=== PATIENT | male | born 1975 | race Caucasian/White ===

== ENCOUNTER 2017-04-25 17:34 | Inpatient (IN) | payer BC ==
--- NOTE | ~2017-04-25 | DS ---
Discharge Summary [facility] [address] [facility] [place]. [address] NAME: FRANCESCA WOOD IV : 73 STATUS : DIS IN PAT#: [id number] AGE: 42 ADM/REG DATE : 04/25/17 MR#: [id number] REPORT SERV DATE: 04/29/17 DICTATED BY: ASIA GR DATE: 04/28/17 REPORT STATUS : Draft TRANSCRIBED BY: MODL DATE: 04/28/17 ADMISSION DATE: 04/25/2017 DISCHARGE DATE: 04/27/2017 CONDITION ON DISCHARGE: Stable. DISPOSITION: Discharged to home. ADVICE ON DISCHARGE: To follow up with Dr. Barboza as an outpatient within the next few weeks as scheduled. DIAGNOSES ON DISCHARGE: 1. Abdominal pain - resolved. 2. Nausea, vomiting - resolved. 3. Diarrhea has resolved; however, the patient does have chronic intermittent diarrhea for which workup will be done and followup will be done at Dr. Barboza's office within the next few weeks. 4. Partial small bowel obstruction and thickening of the small bowel that was seen on the CT scan of the abdomen - partial small bowel obstruction has resolved, but thickening has to be investigated further. BRIEF HOSPITAL COURSE: The patient is a 42-year-old male patient who was admitted with signs and symptoms as outlined in history and physical exam. Essentially, he was admitted with severe abdominal pain, nausea, and intermittent diarrhea. The patient was admitted for further workup and observation initially because his CT scan of the abdomen and pelvis showed partial thickening of the small bowel and also partial small bowel obstruction. Other than that, the liver, the spleen, the kidneys, and the pancreas were all found to be normal and there were no masses that were seen in the intestines itself on CT scan. The patient essentially was admitted for pain control and also for symptomatic treatment of pain and nausea. Initially for the first 23 hours, the patient seemed to be doing well for the first 12 hours or so, but then when we tried to advance his diet from liquids to solids, he started having violent bouts of nausea and vomiting and the abdominal pain came back. Up until yesterday morning around 5 a.m. or so, the patient continued to require IV Dilaudid almost every two hours to keep the abdominal spasmodic pain down and also nausea medicine to keep the nausea down. It was only after late in the morning yesterday that symptoms subsided and he finally requested food to eat. The patient then was started on liquids and then the diet was advanced to solids. All the while along, the patient was seen by Dr. Barboza and multiple tests were ordered. All the test results will be dictated in the paragraphs below. Anyhow on 04/27/2017 later in the morning, the patient started feeling better, and in the late afternoon and evening, he was able to tolerate a regular solid food. I was called after 6 o'clock at night to discharge the patient as the patient was insistent on going home. His was there and she was also saying that he was feeling much better, he was a new person and they wanted to go home. Hence, I discharged the patient home after GI was informed also. However, there is some amount of apprehension involved here as the patient's observation status had to be changed to full inpatient status as he continued to have abdominal pain, nausea, vomiting all the way up until 04/27/2017 morning. Also the Discharge Summary [address] [place]. [address] NAME: FRANCESCA WOOD IV : 73 STATUS : DIS IN PAT#: [id number] AGE: 42 ADM/REG DATE : 04/25/17 MR#: [id number] REPORT SERV DATE: 04/29/17 DICTATED BY: ASIA GR DATE: 04/28/17 REPORT STATUS : Draft TRANSCRIBED BY: NEELAM DATE: 04/28/17 concern was that his diet had not been advanced yet. Anyhow, hope he will do well and will follow up with Dr. Barboza as an outpatient. The following labs have been obtained on this patient so far: His CBC is normal. His BMP is normal. His liver function tests are normal. His lipase is normal. The patient had a CT scan of the abdomen and pelvis that showed partial small bowel obstruction and thickening of the small bowel loops on the left side of the abdomen which was read as nonspecific, but no masses were found. Pancreas was normal. The patient had a urinalysis that was also normal that did not show any evidence of infection. C-reactive protein was also normal. Other labs that were done at this time include the following stool studies: Stool was sent off for C. diff and this came back negative. Stool for parasites came back negative for Giardia and negative for Cryptosporidium. No fecal leukocytes were seen. Dr. Barboza, who consulted on the patient, did order several tests to check for celiac disease at this time. So far, we have the following results back: His anti-gliadin IgA is normal, anti-gliadin IgG is normal, reticulin antibody or tissue transglutaminase is less than 0.5 which is also normal; however, anti-endomysial antibody is pending at this time. Also stool culture has come back with no Shiga toxin that was identified at this time. Hence, this patient's diagnosis is suspicious for either irritable bowel syndrome or inflammatory bowel disease. However, he will follow up with Dr. Barboza as an outpatient. DISCHARGE MEDICATIONS: His home medications that he was discharged home on include the following: Zofran 8 mg p.o. t.i.d. p.r.n. for nausea that he already has, Zyrtec 10 mg once a day that he takes for allergies on a p.r.n. basis, ProAir HFA that he takes p.r.n. for mild intermittent asthma, QVAR 40 mcg two sprays twice a day as needed only for flare-up of asthma, and hydrocortisone 2.5% cream that he applies topically in the rectal area for hemorrhoids. Other than that, no other medications have been prescribed during this admission. This is my discharge summary and I have spent about 35 minutes overall in dictating this summary and I have had a zbyh-cy-crad encounter with this patient also on 04/27/2017. DICTATED BY: Isrrael Dodson/NEELAM Asia Gr M.D. / [id number] CC: Discharge Summary [address] [address] NAME: FRANCESCA WOOD IV : 73 STATUS : DIS IN PAT#: [id number] AGE: 42 ADM/REG DATE : 04/25/17 MR#: [id number] REPORT SERV DATE: 06/11/17 DICTATED BY: ASIA GR DATE: 04/28/17 REPORT STATUS : Draft TRANSCRIBED BY: MODL DATE: 04/28/17 Isrrael Dodson M.D.
--- NOTE | ~2017-04-25 | HP ---
History And Physical [place] [address] [facility] [place]. [address] NAME: FRANCESCA WOOD IV : 73 STATUS : ADM Saundra PAT#: [id number] AGE: 42 ADM/REG DATE : 04/25/17 MR#: [id number] REPORT SERV DATE: 04/25/17 DICTATED BY: ASIA GR DATE: 04/25/17 REPORT STATUS : Draft TRANSCRIBED BY: MODL DATE: 04/25/17 DATE OF ADMISSION: 04/25/2017 HISTORY OF PRESENT ILLNESS: Mr. Wood is a 42-year-old male patient, who came in today because of abdominal pain. The patient states that his abdominal pain started last night after he had had about four beers or so to drink on an empty stomach. He said that he went to bed and was in his usual state of health when the abdominal pain hit him all of a sudden. He states that the pain was in the central part of the abdomen and then gradually spread to other areas of the abdomen too. The abdominal pain was extremely severe and spasmodic type. The patient states that he has never experienced any pain like this before ever. He said that this pain almost doubled him over. The pain lasted for almost four hours or so at nighttime before he was able to finally get some sleep. He woke up again this morning and had the same pain one more time. Normally, when he has a small episodes of abdominal pain like this, he attributes it to gas and usually it gets better once he has a bowel movement. But at this time, the patient states that he had a bowel movement this morning, but even then the pain did not let up. When the pain continued, he got worried and decided to come into the ER. His , who is a food service cashier, also urged him to go on to the ER and hence he is here. The patient states that he had a loose bowel movement this morning. He denies any blood in stool. He denies any mucus in stool. REVIEW OF SYSTEMS: Negative for any vomiting, even though there is some nausea. The patient denies any headaches, blurry vision, trouble swallowing, chest pain, fever, shortness of breath, or cough. Denies any vomiting. Denies any dysuria or hematuria. Denies any joint pains. The patient does say however that he does have intermittent episodes of mild spasmodic-type abdominal pain, that usually gets better once he has a bowel movement. The patient states that he has two to three bowel movements a day off and on about one or two times a week. This usually happens when he has more than three beers or so to drink, and he classically states that this happens when he drinks along with a bag of potato chips. The patient states that he is definitely not an alcoholic at this time. PAST MEDICAL HISTORY: Significant for mild intermittent asthma. SOCIAL HISTORY: The patient does not smoke. He drinks as above. He drinks about three to four beers, sometimes more, two or three times a week, and sometimes does this on an empty stomach. He denies any illicit drug use. He is to a food service cashier and has two children. FAMILY HISTORY: Positive for colon cancer, but other than that, no other family history of inflammatory bowel disease or Crohn disease. MEDICATIONS AND ALLERGIES: His medications and allergies include the following: The patient is allergic to shellfish, but no other known allergies. His medications at home include Zyrtec 10 mg once a day p.r.n., ProAir HFA two puffs q.4 History And Physical [address] [address] NAME: FRANCESCA WOOD IV : 73 STATUS : ADM Saundra PAT#: [id number] AGE: 42 ADM/REG DATE : 04/25/17 MR#: [id number] REPORT SERV DATE: 04/25/17 DICTATED BY: ASIA GR DATE: 04/25/17 REPORT STATUS : Draft TRANSCRIBED BY: NEELAM DATE: 04/25/17 hours p.r.n. for asthma flare up, QVAR two inhalations twice daily, and hydrocortisone cream 2.5% topically in the anorectal area as needed. PHYSICAL EXAMINATION: GENERAL: On examination, the patient is alert, oriented, and is able to give his history himself. Right now, the patient states that his pain is down to only [id number] abdominal discomfort, especially after he has received Demerol in the ER. The patient states he is not nauseated either. Skin and mucous membranes appear well hydrated. VITAL SIGNS: His vital signs show that his blood pressure is 122/76. The patient is afebrile. Pulse is 60 per minute, respirations 15 per minute, and O2 sats 100% on room air. HEENT: Unremarkable. There is no facial asymmetry. NECK: There is no thyromegaly, lymphadenopathy, or any other masses. CARDIOVASCULAR SYSTEM: S1 and S2 appreciated. Sinus rhythm. No murmurs, rubs, or gallops noted. RESPIRATORY SYSTEM: Clear lungs. No rales or rhonchi noted at this time. Good lung expansion noted. ABDOMEN: Soft. There is some tenderness on the left upper quadrant of the belly, but there is no guarding or rigidity. There is no hepatosplenomegaly. There are no other masses that I could appreciate. Bowel sounds are sluggish, but appreciated somewhat. EXTREMITIES: There is no pedal edema. Pedal pulses are well felt. NEUROLOGIC: Normal. MUSCULOSKELETAL: Normal. PSYCHIATRIC: Normal affect. LABORATORY DATA: Labs that I have on this patient include a CBC that shows a WBC count of 7.9. Hemoglobin and hematocrit normal. Platelets normal. Urinalysis essentially shows no evidence of any acute infection. Comprehensive metabolic profile shows normal electrolytes, normal BUN and creatinine, normal lipase, normal LFTs, normal C-reactive protein, and his sedimentation rate is pending at this time. CT scan of the abdomen and pelvis does show partial small bowel obstruction with mild dilatation of small bowel in the left upper quadrant. There is also some small bowel thickening in the left side of the abdomen, which is nonspecific. There is also right and transverse colonic fecal stasis. ASSESSMENT: My assessment on this patient is: 1. Acute abdominal pain and partial small bowel obstruction, nonspecific etiology at this time. 2. The patient could have had an attack of pancreatitis, especially as he states that he drank on an empty stomach yesterday. Even though lipase is normal and CT scan of the abdomen shows normal pancreas, we will repeat a lipase in a.m. 3. Other differential in this patient includes acute gastritis/acute duodenitis/duodenal ulcer. PLAN: So the plan is to admit the patient for 23-hour observation, give him IV fluids, History And Physical [address] [place]. [address] NAME: FRANCESCA WOOD LADI : 71 STATUS : ADM Saundra PAT#: [id number] AGE: 42 ADM/REG DATE : 04/25/17 MR#: [id number] REPORT SERV DATE: 04/25/17 DICTATED BY: ASIA GR DATE: 04/25/17 REPORT STATUS : Draft TRANSCRIBED BY: MODNaheed DATE: 04/25/17 symptomatic relief with IV Dilaudid p.r.n., consult GI at this time. The patient, at some point, may need both an upper endoscopy and a lower endoscopy maybe during this admission, maybe as soon as an outpatient, but we will leave this up to GI specialist to decide. Within 23 hours, I hope his partial small bowel obstruction will clear up. At this time, since he is absolutely not nauseated at all, we will keep him on clear liquids. May advance diet to full liquids tomorrow as tolerated. We will watch the patient for 23-hour observation. RITAA/NEELAM Asia Gr M.D. / [id number] CC: Gary Davis M.D.
--- NOTE | ~2017-04-25 | CN ---
Consultation Report [facility] [address] [place]. [address] NAME: FRANCESCA WOOD IV : 73 STATUS : ADM Saundra PAT#: [id number] AGE: 42 ADM/REG DATE : 04/25/17 MR#: [id number] REPORT SERV DATE: 04/26/17 DICTATED BY: KARL BARBOZA DATE: 04/26/17 REPORT STATUS : Draft TRANSCRIBED BY: MODNaheed DATE: 04/26/17 INPATIENT CONSULTATION DATE OF CONSULTATION: HISTORY OF PRESENT ILLNESS: This is a previously healthy 42-year-old white male, whom I am asked to see for abdominal pain, nausea, and abnormal imaging of the small bowel. He has had some mild gastrointestinal symptoms over the years, most reminiscent of IBS. He has a loose stool about once daily, but sometimes notes some discomfort and urgency before bowel movement, which is relieved after bowel movement. These episodes occur fairly infrequently. Night before last, he had about four beers on an empty stomach. He noted a little bit of discomfort, but this was not very intense. He slept through the night and then had some coffee the next morning and then noted the gradual increase in periumbilical and central abdominal pain. He felt like that if he vomited, it would help and he did induce a little bit of vomiting. Pain became so intense he had come to the emergency room. He says he had a fairly loose bowel movement each day proceeding this. He noted no fever. Imaging in the emergency room with CT scan showed a large amount of stool in the colon and very mildly dilated small bowel with some mild bowel wall thickening. He received some pain medication through the night, and he is feeling much better this morning. He has been able to tolerate clear liquids. PAST MEDICAL HISTORY: Asthma. PAST SURGICAL HISTORY: None. MEDICATIONS: Zyrtec, ProAir inhaler, perianal hydrocortisone cream as needed. ALLERGIES: SHELLFISH. FAMILY HISTORY: Notable for colon cancer, but no inflammatory bowel disease. SOCIAL HISTORY: He has three to four or more beers three or four days a week. He does not smoke. He is quite active and exercises and observes some intermittent fasting and has had some intentional weight loss over the past several months. His is a cloth weigher. REVIEW OF SYSTEMS: Otherwise, unremarkable for constitutional, endocrine, neurologic, psychiatric, ocular, ENT, pulmonary, cardiovascular, GI, or rheumatologic symptoms, except for as noted above. PHYSICAL EXAMINATION: GENERAL: He is a thin, young white male, who is balding, does not appear to be in any acute distress. VITAL SIGNS: Afebrile. Consultation Report [facility] [place] [address] NAME: FRANCESCA WOOD IV : 73 STATUS : ADM Saundra PAT#: [id number] AGE: 42 ADM/REG DATE : 04/25/17 MR#: [id number] REPORT SERV DATE: 04/26/17 DICTATED BY: KARL BARBOZA DATE: 04/26/17 REPORT STATUS : Draft TRANSCRIBED BY: MODNaheed DATE: 04/26/17 SKIN: Warm and dry. LUNGS: Clear to auscultation. CARDIOVASCULAR: Regular rate and rhythm without audible gallop or murmur. ABDOMEN: Soft and not distended. Bowel sounds are present. There is some mild tenderness just to the left side of the central abdomen, but no guarding or rebound tenderness. There is no organomegaly. EXTREMITIES: No edema. LABORATORY DATA AND IMAGING: Noncontrasted abdominopelvic CT scan shows a large amount of stool in the colon, very mild dilation of the small bowel without any evidence of transition zone or flori obstruction, mild small-bowel wall edema. Procalcitonin normal. Urinalysis shows some ketones, a little bit of protein. Electrolytes normal. Liver enzymes normal. Albumin normal. Lipase normal. CBC normal. IMPRESSION: This illness is most consistent with an acute infectious enteritis with secondary ileus and constipation. RECOMMENDATIONS: 1. Full liquid diet for breakfast and if he tolerates this, go ahead and advance to a low- residue diet with plans to discharge later today if he continues to improve. 2. Milk of magnesia 30 mL now. 3. Stool studies. 4. IBD serologies. 5. Celiac serologies. 6. Outpatient followup. Depending on course, we may want to consider elective outpatient EGD and colonoscopy. /NEELAM Karl Barboza M.D. / [id number]
--- NOTE | ~2017-04-25 | DS ---
Discharge Summary [facility] [address] [place]. [address] NAME: FRANCESCA WOOD IV : 73 STATUS : ADM Saundra PAT#: [id number] AGE: 42 ADM/REG DATE : 04/25/17 MR#: [id number] REPORT SERV DATE: 04/27/17 DICTATED BY: ASIA GR DATE: 04/26/17 REPORT STATUS : Draft TRANSCRIBED BY: MODL DATE: 04/26/17 ADMISSION DATE: 04/25/2017 DISCHARGE DATE: CONDITION ON DISCHARGE: Stable. DISPOSITION: Discharged to home. ADVICE ON DISCHARGE: For the patient to follow up with GI doctor, Dr. Karl Barboza, within the next two weeks. Advice on discharge also is to avoid alcohol consumption on an empty stomach. MEDICATIONS UPON DISCHARGE: Include just one new medication that has been added to his medication list and that is Protonix 40 mg p.o. daily, #30 only. Tests that are pending at this time include stool for culture, fecal leukocytes, stool for ova and parasites, and also tests that are ordered by Dr. Barboza that include anti-gliadin antibody, anti-endomysial antibody, and tissue transglutaminase. DIAGNOSES ON DISCHARGE: 1. Acute abdominal pain unspecified - completely resolved with supportive care and analgesics. 2. His lipase has come back normal repeatedly and CT scan showed only a partial small bowel obstruction that is resolving right now. No other masses or no other abnormalities were found on CT scan of the abdomen or pelvis. So, the abdominal pain could have been because of acute gastritis/duodenitis/even a duodenal ulcer; however, the patient probably needs both upper and lower endoscopy as an outpatient as deemed appropriate by Dr. Barboza when the patient sees him in about two weeks. BRIEF HOSPITAL COURSE: Essentially, the patient was admitted for abdominal pain, nausea, no vomiting, and please see H and P for details. This completely resolved with supportive care and symptomatic treatment. As mentioned above, CT scan of the abdomen only showed partial small bowel obstruction with no other masses and no other abnormalities. Pancreas was normal. Labs were stone cold normal including his CBC which was normal, H and H normal, WBC normal. Renal function tests, liver enzymes were normal. Lipase was normal. Urinalysis was normal. His other tests have also come back negative and hence the patient is being discharged home today if he tolerates soft GI diet. His stool will be sent off for C. diff culture, fecal leukocytes, ova and parasites, and available for perusal/review by Dr. Barboza when the patient sees him in about two weeks. I have spent about 30 minutes in coordinating discharge care of this patient including face- to-face encounter. DICTATED BY: Asia Gr M.D. Discharge Summary [address] [place] [address] NAME: FRANCESCA WOOD IV : 73 STATUS : ADM Saundra PAT#: [id number] AGE: 42 ADM/REG DATE : 04/25/17 MR#: [id number] REPORT SERV DATE: 04/27/17 DICTATED BY: ASIA GR DATE: 04/26/17 REPORT STATUS : Draft TRANSCRIBED BY: NEELAM DATE: 04/26/17 MCKENNA/NEELAM Asia Gr M.D. / [id number] CC: Isrrael Dodson M.D.
[2017-04-25 14:25] LABS: BASOPHILS 0.3 %; BASOPHILS ABSOLUTE 0.02 10/3/uL (0.0-0.16); EOSINOPHILS 0.1 %; EOSINOPHILS ABSOLUTE 0.01 10/3/uL (0.0-0.53); HEMATOCRIT 46.3 % (40.0-51.0); HEMOGLOBIN 15.5 g/dL (13.6-17.8); IMMATURE GRANULOCYTES 0.3 %; IMMATURE GRANULOCYTES ABSOLUTE 0.02 10/3/uL (0.0-0.11); LYMPHOCYTES 5.9 %; LYMPHOCYTES ABSOLUTE 0.46 10/3/uL (0.67-4.30); MEAN CORPUS HGB CONC 33.5 g/dL (32.0-36.0); MEAN CORPUSCULAR HEMOGLOB 30.6 pg (26.0-34.0); MEAN CORPUSCULAR VOLUME 91.5 fL (80-100); MEAN PLATELET VOLUME 12.1 fL (9.2-13.0); MONOCYTES 2.4 %; MONOCYTES ABSOLUTE 0.19 10/3/uL (0.21-1.20); NEUTROPHILS ABSOLUTE 7.16 10/3/uL (2.02-8.40); PLATELET COUNT 168 10/3/uL (150-400); RBC DISTRIBUTION WIDTH 13.2 % (12.0-16.0); RED CELL COUNT 5.06 10/6/uL (4.7-6.1)
[2017-04-25 14:26] LABS: ER CBC TAT 0 Hrs 05 Mins; MANUAL DIFF NO %; WHITE BLOOD CELLS 7.9 10/3/uL (4.5-10.5)
[2017-04-25 14:29] LABS: ASCORBIC ACID (UR NOT ORDER) NEG (NEG); BILIRUBIN, URINE NEGATIVE (NEG); ER URINALYSIS TAT 0 Hrs 08 Mins; KETONE, URINE 80 MG/DL (NEG); LEUKOCYTE ESTERASE(NOT OR NEG (NEG); NITRITE (URINE) NEG (NEG); WBC (NOT ORDERED) (RFLEX) < 1 (0-5)
[2017-04-25 14:41] LABS: A/G RATIO 1.5 (0.7-1.9); ALBUMIN 4.5 G/DL (3.5-5.0); ALKALINE PHOSPHATASE 71 U/L (45-117); CALCIUM, SERUM 9.6 MG/DL (8.5-10.4); CHLORIDE, SERUM 107 MMOL/L (96-112); CO2 (CARBON DIOXIDE) 28 MMOL/L (24-34); CREATININE 1.06 MG/DL (0.70-1.30); GFR AFRICAN AMERICAN 98 ML/MIN (>=60); GFR NON AFRICAN AMERICAN 85 ML/MIN (>=60); SGOT(AST) 29 U/L (5-40); SGPT(ALT) 37 U/L (5-65); SODIUM, SERUM 138 MMOL/L (135-148); TOTAL BILIRUBIN 0.8 MG/DL (0-1.2); TOTAL PROTEIN 7.5 G/DL (6.0-8.5)
[2017-04-25 14:42] LABS: BUN (BLOOD UREA NITROGEN) 18 MG/DL (6-23); GLUCOSE, SERUM 108 MG/DL (60-99)
[~2017-04-25 17:34] MED LIST: HYDROCORTISONE30 G1 TOP; PROAIR HFA INH; QVAR40 MC1 INH; ZOFRAN8 PO; ZYRTEC ALLGY10 MG PO
[2017-04-25 17:45] LABS: C-REACTIVE PROTEIN < 2.9 MG/L (<8.0)
[2017-04-25 18:36] LABS: SED RATE 1 MM/HR (0-15)
[2017-04-25 20:17] LABS: PROCALCITONIN <0.05 ng/mL (<0.5)
[2017-04-26 03:51] LABS: BASOPHILS 0.4 %; BASOPHILS ABSOLUTE 0.03 10/3/uL (0.0-0.16); EOSINOPHILS 0.6 %; EOSINOPHILS ABSOLUTE 0.04 10/3/uL (0.0-0.53); HEMATOCRIT 42.8 % (40.0-51.0); HEMOGLOBIN 14.7 g/dL (13.6-17.8); IMMATURE GRANULOCYTES 0.1 %; IMMATURE GRANULOCYTES ABSOLUTE 0.01 10/3/uL (0.0-0.11); LYMPHOCYTES 19.9 %; LYMPHOCYTES ABSOLUTE 1.37 10/3/uL (0.67-4.30); MEAN CORPUS HGB CONC 34.3 g/dL (32.0-36.0); MEAN CORPUSCULAR HEMOGLOB 31.7 pg (26.0-34.0); MEAN CORPUSCULAR VOLUME 92.4 fL (80-100); MEAN PLATELET VOLUME 12.4 fL (9.2-13.0); MONOCYTES 10.3 %; MONOCYTES ABSOLUTE 0.71 10/3/uL (0.21-1.20); NEUTROPHILS 68.7 %; NEUTROPHILS ABSOLUTE 4.71 10/3/uL (2.02-8.40); PLATELET COUNT 133 10/3/uL (150-400); RBC DISTRIBUTION WIDTH 13.2 % (12.0-16.0); RED CELL COUNT 4.63 10/6/uL (4.7-6.1); WHITE BLOOD CELLS 6.9 10/3/uL (4.5-10.5)
[2017-04-26 03:55] LABS: MANUAL DIFF NO %
[2017-04-26 04:11] LABS: A/G RATIO 1.4 (0.7-1.9); ALBUMIN 3.6 G/DL (3.5-5.0); ALKALINE PHOSPHATASE 63 U/L (45-117); BUN (BLOOD UREA NITROGEN) 17 MG/DL (6-23); CHLORIDE, SERUM 109 MMOL/L (96-112); CO2 (CARBON DIOXIDE) 26 MMOL/L (24-34); CREATININE 0.87 MG/DL (0.70-1.30); GFR AFRICAN AMERICAN 122 ML/MIN (>=60); GFR NON AFRICAN AMERICAN 105 ML/MIN (>=60); GLOBULIN 2.6 G/DL (2.5-4.1); GLUCOSE, SERUM 102 MG/DL (60-99); POTASSIUM, SERUM 4.2 MMOL/L (3.5-5.3); SGOT(AST) 20 U/L (5-40); SGPT(ALT) 28 U/L (5-65); SODIUM, SERUM 141 MMOL/L (135-148); TOTAL BILIRUBIN 1.1 MG/DL (0-1.2); TOTAL PROTEIN 6.2 G/DL (6.0-8.5)
[2017-04-26 04:28] LABS: CALCIUM, SERUM 8.5 MG/DL (8.5-10.4)
[2017-04-27 04:29] LABS: BASOPHILS 0.1 %; BASOPHILS ABSOLUTE 0.01 10/3/uL (0.0-0.16); EOSINOPHILS 0.1 %; EOSINOPHILS ABSOLUTE 0.01 10/3/uL (0.0-0.53); HEMOGLOBIN 15.7 g/dL (13.6-17.8); IMMATURE GRANULOCYTES 0.3 %; IMMATURE GRANULOCYTES ABSOLUTE 0.03 10/3/uL (0.0-0.11); LYMPHOCYTES 6.4 %; LYMPHOCYTES ABSOLUTE 0.73 10/3/uL (0.67-4.30); MEAN CORPUS HGB CONC 33.2 g/dL (32.0-36.0); MEAN CORPUSCULAR HEMOGLOB 30.8 pg (26.0-34.0); MEAN CORPUSCULAR VOLUME 92.9 fL (80-100); MEAN PLATELET VOLUME 12.2 fL (9.2-13.0); MONOCYTES 9.7 %; MONOCYTES ABSOLUTE 1.12 10/3/uL (0.21-1.20); NEUTROPHILS 83.4 %; NEUTROPHILS ABSOLUTE 9.59 10/3/uL (2.02-8.40); PLATELET COUNT 166 10/3/uL (150-400); RBC DISTRIBUTION WIDTH 13.2 % (12.0-16.0); RED CELL COUNT 5.09 10/6/uL (4.7-6.1)
[2017-04-27 04:31] LABS: HEMATOCRIT 47.3 % (40.0-51.0); MANUAL DIFF NO %; WHITE BLOOD CELLS 11.5 10/3/uL (4.5-10.5)
[2017-04-27 04:44] LABS: A/G RATIO 1.2 (0.7-1.9); ALBUMIN 3.6 G/DL (3.5-5.0); ALKALINE PHOSPHATASE 63 U/L (45-117); BUN (BLOOD UREA NITROGEN) 17 MG/DL (6-23); CALCIUM, SERUM 8.6 MG/DL (8.5-10.4); CHLORIDE, SERUM 105 MMOL/L (96-112); CO2 (CARBON DIOXIDE) 29 MMOL/L (24-34); GFR AFRICAN AMERICAN 106 ML/MIN (>=60); GFR NON AFRICAN AMERICAN 91 ML/MIN (>=60); POTASSIUM, SERUM 4.2 MMOL/L (3.5-5.3); SGOT(AST) 12 U/L (5-40); SGPT(ALT) 25 U/L (5-65); SODIUM, SERUM 139 MMOL/L (135-148); TOTAL BILIRUBIN 1.1 MG/DL (0-1.2); TOTAL PROTEIN 6.6 G/DL (6.0-8.5)
[2017-04-27 04:46] LABS: GLUCOSE, SERUM 134 MG/DL (60-99)
[2017-04-27 19:20] LABS: TISSUE TRANSGLUTAMINASE AB IGA <0.5 U/mL (<15.0); TISSUE TRANSGLUTAMINASE AB IGG <0.8 U/mL (<15.0)
[2017-05-02 14:09] LABS: ENDOMYSIAL ANTIBODY <1:2.5 titer (())
== END 2017-04-27 19:09 | disposition home or self-care (01) | DRG 390 ==
LOC: ER 17:34 → CDU1 18:18 → CDU2 18:48 → 5SO 04-27 10:02
PROVIDERS: Emergency Medicine; Internal Medicine Gastroenterology
DX: K56.69 Other intestinal obstruction (principal); A08.4 Viral intestinal infection, unspecified; J45.20 Mild intermittent asthma, uncomplicated; Z91.013 Allergy to seafood; K59.00 Constipation, unspecified; R19.7 Diarrhea, unspecified
CPT/HCPCS: 74176; 80053; 81001; 81479; 81479-59; 82397; 82397-59; 83516; 83516-59; 83520; 83520-59; 83690; 84145; 85025; 85652; 86140; 86255; 87045; 87046; 87046-59; 87328; 87329; 87493; 87493-59; 87899; 87899-59; 88346; 88350; 89055; 93005; 96374; 96375; 99285; A9270-GY; J1170; J2405

== ENCOUNTER 2017-05-14 12:50 | Day surgery (SDC) | payer BC ==
--- NOTE | ~2017-05-14 | EGD ---
EGD REPORT [facility] [address] [place] [address] NAME: KAMERON WOOD IV : [birth year] [place]US [place] [facility] [facility] [place] [id number] AGE: 42 ADM/REG DATE : 05/14/17 MR#: [id number] REPORT SERV DATE: 05/14/17 DICTATED BY: JANIE SAVAGE DATE: 05/14/17 REPORT STATUS : Draft TRANSCRIBED BY: [facility] DATE: 05/14/17 Endoscopy Center Patient Name: Kameron Wood Date of : 1975 Attending MD: JANIE SAVAGE MD Procedure Date No Time: 05/14/2017 Procedure: Upper GI endoscopy Indications: Generalized abdominal pain, Positive celiac serologies, Abdominal bloating, Diarrhea Referring MD: ELÍAS SCHAEFFER MD Medicines: Propofol per Anesthesia Complications: No immediate complications. Estimated blood loss: None. Procedure: Pre-Anesthesia Assessment: - After reviewing the risks and benefits, the patient was deemed in satisfactory condition to undergo the procedure. - Prior to the procedure, a History and Physical was performed, and patient medications and allergies were reviewed. The patient's tolerance of previous anesthesia was also reviewed. The risks and benefits of the procedure and the sedation options and risks were discussed with the patient. All questions were answered, and informed consent was obtained. Prior Anticoagulants: The patient has taken no previous anticoagulant or antiplatelet agents. ASA Grade Assessment: II - A patient with mild systemic disease. After reviewing the risks and benefits, the patient was deemed in satisfactory condition to undergo the procedure. After obtaining informed consent, the endoscope was passed under direct vision. Throughout the procedure, the patient's blood pressure, pulse, and oxygen saturations were monitored continuously. The GIF [id number] was introduced through the mouth, and advanced to the jejunum. The upper GI endoscopy was accomplished without difficulty. The patient tolerated the procedure well. Findings: The examined esophagus was normal. The entire examined stomach and gastroesophageal junction (on retroflexion) were normal. The examined duodenum was normal. Biopsies were taken with a cold forceps for histology. Estimated blood loss: none. Impression: - Normal esophagus. EGD REPORT [address] [address] NAME: KAMERON WOOD IV : [birth year] [place]US [place] [facility] [place] [id number] AGE: 42 ADM/REG DATE : 05/14/17 MR#: [id number] REPORT SERV DATE: 05/14/17 DICTATED BY: JANIE SAVAGE DATE: 05/14/17 REPORT STATUS : Draft TRANSCRIBED BY: [employer] DATE: 05/14/17 - Normal stomach and gastroesophageal junction. - Normal examined duodenum. Biopsied. - Gluten sensitive enteropathy. Recommendation: - Discharge patient to home (ambulatory). - Gluten free diet. We will arrange a dietary consult for further instruction. - Continue present medications. - Await pathology results. - Return to GI clinic in 6-8 weeks. - Patient has a contact number available for emergencies. The signs and symptoms of potential delayed complications were discussed with the patient. Return to normal activities tomorrow. Written discharge instructions were provided to the patient. Procedure Code(s): --- Professional --- 05251, Esophagogastroduodenoscopy, flexible, transoral; with biopsy, single or multiple Diagnosis Code(s): --- Professional --- R10.84, Generalized abdominal pain R76.8, Other specified abnormal immunological findings in serum R14.0, Abdominal distension (gaseous) R19.7, Diarrhea, unspecified CPT copyright 2013 [employer]. All rights reserved. The codes documented in this report are preliminary and upon manager law review may be revised to meet current compliance requirements. JANIE SAVAGE MD 05/14/2017 3:51 PM This report has been signed electronically. Number of Addenda: 0 Note Initiated On: 05/14/2017 3:33 PM [address] [id number]
== END 2017-05-14 23:59 | disposition home or self-care (01) ==
LOC: DMU 12:50
PROVIDERS: Internal Medicine Gastroenterology
PROC: 0DB98ZX Excision of Duodenum, Via Natural or Artificial Opening Endoscopic, Diagnostic (ICD-10-PCS; principal; 2017-05-14 14:15)
DX: R10.84 Generalized abdominal pain (principal); R76.8 Other specified abnormal immunological findings in serum; R14.0 Abdominal distension (gaseous); R19.7 Diarrhea, unspecified; J45.909 Unspecified asthma, uncomplicated; Z79.899 Other long term (current) drug therapy; Z98.890 Other specified postprocedural states
CPT/HCPCS: 88305